=== PATIENT | female | born 1985 | race Caucasian/White ===

== ENCOUNTER 2017-04-25 19:28 | Emergency (ER) | payer SELFPAY ==
[2017-04-25 20:22] VITALS: BP 123/76
[2017-04-25] MEDS ORDERED: Amoxicillin/Clavulanate TAB* 500 MG PO ONE (20:46)
--- NOTE | 2017-04-25 20:56 | UC ---
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 NOT suspect/high risk for rabies - History of Current Complaint Chief Complaint: UCBiteInjury Stated Complaint: DOG BITE/ WC Time Seen by Provider: 04/25/17 20:35 Hx Obtained From: Patient Hx Last Menstrual Period: 10 days ago Pain Intensity: 5 Type of Bite: Animal Has Animal Been Immunized?: Yes Character: Puncture Alleviating Factor(s): Nothing - Allergies/Home Medications Allergies/Adverse Reactions: Allergies Allergy/AdvReac Type Severity Reaction Status Date / Time No Known Allergies Allergy Verified 07/11/16 14:02 PMH/Surg Hx/FS Hx/Imm Hx - Additional Past Medical History Additional PMH: none Previously Healthy: Yes - Surgical History Surgical History: None - Family History Known Family History: Negative: Cardiac Disease, Hypertension, Diabetes - Social History Alcohol Use: None Substance Use Type: None Smoking Status (MU): Never Smoked Tobacco Review of Systems Constitutional: Negative Skin: Other - dog bite Eyes: Negative ENT: Negative Respiratory: Negative Cardiovascular: Negative Gastrointestinal: Negative Genitourinary: Negative Motor: Negative Neurovascular: Negative Musculoskeletal: Negative Neurological: Negative Psychological: Negative All Other Systems Reviewed And Are Negative: Yes Physical Exam Triage Information Reviewed: Yes Vital Signs: Initial Vital Signs Temp 36.7 C 04/25/17 20:19 Pulse 78 04/25/17 20:19 Resp 15 04/25/17 20:19 BP 123/76 04/25/17 20:19 Pulse Ox 99 04/25/17 20:19 Eye Exam: Normal ENT Exam: Normal Dental Exam: Normal Neck exam: Normal Neck: Positive: 1 Respiratory Exam: Normal Cardiovascular Exam: Normal Abdominal Exam: Normal Musculoskeletal Exam: Normal Neurological Exam: Normal Psychological Exam: Normal Skin Exam: Normal Skin: Positive: significant lesion(s) - puncture wound on right index finger on lateral and medial sides of PIP, NO tendon deficits noted Bite Injury Course/Dx - Course Course Of Treatment: XR of right index finger neg for fx or dislocation - Differential Dx/Diagnosis Differential Diagnosis/HQI/PQRI: Cellulitis Provider Diagnoses: right index finger dog bite Discharge - Discharge Plan Condition: Stable Disposition: HOME Prescriptions: Amoxicillin/Clavulanate TAB* [Augmentin TAB 500 mg*] 500 mg PO BID 10 Days #20 tab Patient Education Materials: Animal Bite (ED) Referrals: No Primary Care Phys,NOPCP [Primary Care Provider] - Additional Instructions: take medication as directed
[2017-04-25] MEDS ORDERED: Naproxen TAB* 250 MG PO ONE (20:57)
--- NOTE | 2017-04-25 21:06 | RAD ---
HISTORY: Penetrating trauma, second digit of the right hand COMPARISONS: None VIEWS: 3, Frontal, lateral, and oblique views of the second digit of the right and FINDINGS: BONE DENSITY: Normal. BONES: There is no displaced fracture. JOINTS: There is no arthropathy. ALIGNMENT: There is no dislocation. SOFT TISSUES: Unremarkable. OTHER FINDINGS: None. IMPRESSION: NO ACUTE OSSEOUS INJURY. IF SYMPTOMS PERSIST, RECOMMEND REPEAT IMAGING.
== END 2017-04-25 22:25 | disposition home or self-care (01) ==
LOC: UCEAST 19:28
DX: S61.230A Puncture wound without foreign body of right index finger without damage to nail, initial encounter (principal); W54.0XXA Bitten by dog, initial encounter; Y93.K9 Activity, other involving animal care; Y92.89 Other specified places as the place of occurrence of the external cause
CPT/HCPCS: 73140; 99212; A9270-GY; G0463

== ENCOUNTER 2018-05-26 19:34 | Emergency (ER) | payer BC, OTHER ==
[2018-05-26 20:08] VITALS: BP 114/75
--- NOTE | 2018-05-26 20:57 | UC ---
FLU HPI - HPI Summary HPI Summary: 33 y/o female presents to the urgent care c/o sore throat, MENDOZA, body aches, fatigue since 05/22/2018. Pt reports today she developed a dry cough and hoarseness. She has PMHX of exercise induced asthma, but has been controlled for many years. This morning she felt winded walking up stairs. Sore throat is mild 4/10. She took Aleve PO last night to alleviate symptoms. Pt denies fever , SOB, wheezing, chest pain, abdominal pain, N/V/D. - History of Current Complaint Chief Complaint: UCGeneralIllness Stated Complaint: HEADACHE,SORE THROAT Time Seen by Provider: 05/26/18 20:42 Hx Obtained From: Patient Hx Last Menstrual Period: 1 WEEK AGO Onset/Duration: Gradual Onset, Lasting Days - 4 days, Still Present Severity Currently: Mild Severity Initially: Mild Pain Intensity: 4 Pain Scale Used: 0-10 Numeric Associated Signs & Symptoms: Positive: Myalgia, Sore Throat, Nasal Congestion - clear, Headache - Risk Factors Influenza Risk Factors: Negative - Allergy/Home Medications Allergies/Adverse Reactions: Allergies Allergy/AdvReac Type Severity Reaction Status Date / Time latex Allergy HIVES, Verified 05/26/18 20:08 ITCHING, REDNESS Home Medications: Home Medications Iud* 05/26/18 [History] PMH/Surg Hx/FS Hx/Imm Hx Previously Healthy: Yes Respiratory History: Asthma - as a child - Surgical History Surgical History: Yes Surgery Procedure, Year, and Place: WISDOM TEETH - Family History Known Family History: Positive: Cardiac Disease, Diabetes Negative: Hypertension Family History: Stroke - Social History Occupation: Employed Full-time Lives: With Family Alcohol Use: Occasionally Substance Use Type: None Smoking Status (MU): Never Smoked Tobacco Review of Systems All Other Systems Reviewed And Are Negative: Yes Constitutional: Positive: Chills, Fatigue, Other - body aches Skin: Positive: Negative Eyes: Positive: Negative ENT: Positive: Sore Throat, Nasal Discharge - clear, Other - harseness Respiratory: Positive: Cough - dry Cardiovascular: Positive: Negative Gastrointestinal: Positive: Negative Genitourinary: Positive: Negative Motor: Positive: Negative Neurovascular: Positive: Negative Musculoskeletal: Positive: Negative Neurological: Positive: Headache Psychological: Positive: Negative Is Patient Immunocompromised?: No Physical Exam - Summary Physical Exam Summary: VITAL SIGNS: Reviewed. GENERAL: Patient is a well developed and nourished female who is sitting comfortable in the examining table. Patient is not in any acute respiratory distress. HEAD AND FACE: No signs of trauma. No ecchymosis, hematomas or skull depressions. No sinus tenderness. EYES: PERRLA, EOMI x 2, No injected conjunctiva, no nystagmus. No photophobia. EARS: Hearing grossly intact. Ear canals and tympanic membranes are within normal limits. Nose: edematous and erythematous nasal mucosa w/ clear nasal discharge. MOUTH: Positive no erythema, no tonsillar enlargement. Uvula in midline. NECK: Supple, trachea is midline, Positive anterior cervical lymphadenopathy, no JVD, no carotid bruit, no c-spine tenderness, neck with full ROM. No meningeal signs, no Kernig's or brudzinskis signs. CHEST: Symmetric, no tenderness at palpation LUNGS: Clear to auscultation bilaterally. No wheezing or crackles. CVS: Regular rate and rhythm, S1 and S2 present, no murmurs or gallops appreciated. ABDOMEN: Soft, non-tender. No signs of distention. No rebound no guarding, and no masses palpated. Bowel sounds are normal. EXTREMITIES: FROM in all major joints, no edema, no cyanosis or clubbing. NEURO: Alert and oriented x 3. No acute neurological deficits. Speech is normal and follows commands. SKIN: Dry and warm Triage Information Reviewed: Yes Vital Signs: Initial Vital Signs Temp 98.5 F 05/26/18 20:04 Pulse 74 05/26/18 20:04 Resp 16 05/26/18 20:04 BP 114/75 05/26/18 20:04 Pulse Ox 100 05/26/18 20:04 Flu Course/Dx - Course Course Of Treatment: 33 y/o female presents to the urgent care c/o sore throat, MENDOZA, body aches, fatigue since 05/22/2018. Pt reports today she developed a dry cough and hoarseness. She has PMHX of exercise induced asthma, but has been controlled for many years. This morning she felt winded walking up stairs. Sore throat is mild 05/25. She took Aleve PO last night to alleviate symptoms. Pt denies fever , SOB, wheezing, chest pain, abdominal pain, N/V/D. Hx obtained. Pt w/ a viral syndrome, Rapid strep: negative, Rapid Influenza A&B: negative. Pt advised to take ibuprofen PO and rest her voice to alleviates symptoms of pain and swelling. Advised on hand washing to avoid spreading. Pt advised to rest, eat well and avoid strenuous exercise. If symptoms do not improve or worsen advised to return to the urgent care or f/u with her PCP for further evaluation and treatment. Pt understood and agreed - Differential Dx/Diagnosis Differential Diagnosis/HQI/PQRI: Bronchitis, Influenza, Pneumonia, Upper Respiratory Infection Provider Diagnosis: Acute viral syndrome Discharge - Sign-Out/Discharge Documenting (check all that apply): Patient Departure - d/c home All imaging exams completed and their final reports reviewed: No Studies - Discharge Plan Condition: Stable Disposition: HOME Patient Education Materials: Viral Syndrome (ED) Referrals: [facility] [Outside] - 3 Days Additional Instructions: 1-Please take ibuprofen PO q6-8hrs prn as instructed after meals to alleviate pain and swelling. Increase fluid intake, eat well, rest and avoid strenuous exercise 2-If symptoms do not improve or worsen please return to the urgent care or f/u with your PCP in 3 days for further evaluation and treatment. - Billing Disposition and Condition Condition: STABLE Disposition: Home
[2018-05-26 21:15] LABS: Influenza A Molecular NEGATIVE (Negative); Influenza B Molecular NEGATIVE (Negative)
== END 2018-05-26 22:00 | disposition home or self-care (01) ==
LOC: UCEAST 19:34
DX: B34.9 Viral infection, unspecified (principal); J45.990 Exercise induced bronchospasm; Z91.040 Latex allergy status
CPT/HCPCS: 87651; 99211; G0463